=== PATIENT | male | born 1955 | race Caucasian/White ===

== ENCOUNTER 2021-04-19 00:24 | Day surgery (SDC) | payer MEDICARE, SELFPAY ==
[2021-04-08 15:25] VITALS: BMI 33.0
[2021-04-19 08:42] VITALS: BP 147/79; PULSE 89; RESP 20; TEMP 36.8; O2SAT 98
[2021-04-19] MEDS: LACTATED RINGERS 1,000 ML 150 ML IV CONT (08:44)
--- NOTE | 2021-04-19 08:52 | WPDANESEPPF ---
Anes - Initial Pre Proc Eval Procedure: Operation Date: 04/19/21 09:30 Proposed Procedures p Colonoscopy - Jamie Giron MD Date/Time: 04/19/21 08:52 Surgeon: Jamie Giron MD Pre Op Diagnosis: positive cologuard Patient Data Age: 65 Gender: M Height: 1.85 m Weight: 113.2 kg Last Vital Signs Temp 36.8 C 04/19/21 08:42 Pulse 89 04/19/21 08:42 Resp 20 04/19/21 08:42 BP 147/79 H 04/19/21 08:42 Pulse Ox 98 04/19/21 08:42 Allergies Allergy/AdvReac Type Severity Reaction Status Date / Time No Known Allergies Allergy Unverified 04/19/21 08:41 Home Medications Medication Instructions Recorded Confirmed Type atorvastatin 20 mg tablet 20 mg PO DAILY #90 tablet 03/31/21 04/19/21 Rx colchicine [Mitigare] 0.6 mg PO DAILY 04/08/21 04/19/21 History lisinopril 5 mg PO DAILY 04/08/21 04/19/21 History Patient hx anesthesia problems: none Family hx anesthesia problems: none Results Review: All pre-operative results and documents have been reviewed as part of the pre-operative evaluation. [facility] Past Medical History Medical History Essential (primary) hypertension Idiopathic chronic gout, unspecified site, without tophus (tophi) Mixed hyperlipidemia Nonalcoholic steatohepatitis (DRIVER) Prediabetes (2019) Surgical History Surgical History (Updated 04/19/21 @ 08:52 by Pablo Linder MD) H/O parotidectomy Family History Family History Father Family history of premature coronary heart disease, Onset Age: 56 Patient's father is Mother Hypertension Family history of elevated blood lipids Family history of diabetes mellitus in first degree relative Social History Social History Social History: Smoking status: Never smoker Second hand tobacco smoke exposure: No Alcohol intake: former Alcohol use details: hasn't been a drinker for 40 years Substance use: never Substance use type: does not use Living arrangements: with family Gender identity (if verbalized by the patient): Male Sexual Orientation (if Verbalized by the Patient): Straight or Heterosexual Spiritual care concerns: No Anes - Eval Final PreProcedure Day of Procedure 04/19/21 08:52 Patient weight: obese Heart: regular rate and rhythm Lungs: clear to auscultation Airway: Mallampati scale class II Neurological: alert and oriented Last oral intake: >/= 8 hours ASA classification: III Emergent: no Anesthetic plan: proceed Anesthesia type and monitoring: general GIVS and standard monitoring Results Review: All pre-operative results and documents have been reviewed as part of the pre-operative evaluation. Informed Consent: The patient's anesthetic plan and its attendant risks and benefits were discussed with the patient/family/POA. Questions were solicited and answers provided to the satisfaction of the patient/family/POA.
--- NOTE | 2021-04-19 09:20 | PM.HPGS ---
History of Present Illness History of Present Illness Consent: Risks, benefits, and alternatives have been discussed and questions answered. Patient agrees to proceed with procedure. Chief complaint: positive cologuard Narrative: Salo Shelley is a 65 year old male here for positive cologuard, never had colonoscopy Review of Systems Constitutional: Constitutional: Denies headache(s) and Denies weakness Eyes: Eyes: Denies blurry vision ENT: Reports Normal hearing present, Denies headache(s) and Denies neck pain Cardiovascular: Cardiovascular: Denies chest pain and Denies dyspnea Respiratory: Respiratory: Denies dyspnea Gastrointestinal: Gastrointestinal: Reports no additional gastrointestinal complaints Genitourinary: Genitourinary: Denies dysuria Musculoskeletal: Musculoskeletal: Denies neck pain Integumentary/Breasts: Skin/Breast: Denies dry skin Neurologic: Reports Normal hearing present, Denies headache(s) and Denies weakness Psychiatric: Psychiatric: Denies anxiety Endocrine: Endocrine: Denies change in body appearance Hematologic/Lymphatic: Hematologic/Lymphatic: Denies easy bleeding Allergic/Immunologic: Allergic/Immunologic: Denies urticaria PMFSH Past Medical History Medical History Essential (primary) hypertension Idiopathic chronic gout, unspecified site, without tophus (tophi) Mixed hyperlipidemia Nonalcoholic steatohepatitis (DRIVER) Prediabetes (2019) Surgical History Surgical History (Updated 04/19/21 @ 08:52 by Pablo Linder MD) H/O parotidectomy Family History Family History Father Family history of premature coronary heart disease, Onset Age: 56 Patient's father is Mother Hypertension Family history of elevated blood lipids Family history of diabetes mellitus in first degree relative Social History Social History Social History: Smoking status: Never smoker Second hand tobacco smoke exposure: No Alcohol intake: former Alcohol use details: hasn't been a drinker for 40 years Substance use: never Substance use type: does not use Living arrangements: with family Gender identity (if verbalized by the patient): Male Sexual Orientation (if Verbalized by the Patient): Straight or Heterosexual Spiritual care concerns: No Meds Home Medications and Allergies Home Medications Medication Instructions Recorded Confirmed Type atorvastatin 20 mg tablet 20 mg PO DAILY #90 tablet 03/31/21 04/19/21 Rx colchicine [Mitigare] 0.6 mg PO DAILY 04/08/21 04/19/21 History lisinopril 5 mg PO DAILY 04/08/21 04/19/21 History Allergies Allergy/AdvReac Type Severity Reaction Status Date / Time No Known Allergies Allergy Unverified 04/19/21 08:41 Vital Signs Vital Signs - 24 hr 04/19/21 08:42 Temperature 98.3 F Pulse Rate 89 Respiratory Rate 20 Blood Pressure 147/79 H Pulse Oximetry 98 Exam Const: General: comfortable and no acute distress HENMT: General nose exam: Normal nares present Eyes: General: appearance normal, both eyes and all related structures Neck: Neck: no JVD Resp: Auscultation: clear to auscultation bilaterally Cardio: Rate: regular rate Rhythm: regular rhythm GI: Inspection: non-distended GI Palp: Yes Soft to palpation Skin: General skin exam: normal color Neuro: General: gait normal Speech: normal speech Extrem: General: normal to inspection Psych: Mental Status: mental status grossly normal Assessment and Plan Assessment and plan (1) Positive colorectal cancer screening using Cologuard test: Code(s): R19.5 - Other fecal abnormalities Status: Acute Assessment and Plan: colonoscopy
[2021-04-19 09:44] VITALS: BP 107/68; PULSE 84; RESP 20; O2SAT 99
[2021-04-19 09:54] VITALS: BP 113/77; PULSE 74; RESP 18; O2SAT 98
[2021-04-19 10:04] VITALS: BP 123/74; PULSE 72; RESP 18; O2SAT 99
== END 2021-04-19 10:15 | disposition home or self-care (01) ==
PROVIDERS: PCP Family Medicine; Visit Provider Internal Medicine Gastroenterology
PROC: 0DJD8ZZ Inspection of Lower Intestinal Tract, Via Natural or Artificial Opening Endoscopic (ICD-10-PCS; CPT 45378; principal; 2021-04-19 09:30)
DX: R19.5 Other fecal abnormalities (principal); K64.8 Other hemorrhoids; D12.3 Benign neoplasm of transverse colon; I10 Essential (primary) hypertension; R73.03 Prediabetes; K75.81 Nonalcoholic steatohepatitis (NASH); E78.2 Mixed hyperlipidemia; M1A.00X0 Idiopathic chronic gout, unspecified site, without tophus (tophi); E66.9 Obesity, unspecified; Z68.32 Body mass index [BMI] 32.0-32.9, adult
CPT/HCPCS: 45385; 88305; J2704; J7120

== ENCOUNTER 2023-07-20 08:19 | Outpatient (CLI) | payer MEDICARE, SELFPAY ==
--- NOTE | ~2023-07-20 | CT_ITS ---
EXAMINATION: CT abdomen pelvis wo con DATE: 07/20/2023 09:35 INDICATION: Fever and left flank pain. Nephrolithiasis. TECHNIQUE: Computed tomography (CT) of the abdomen and pelvis was performed without intravenous contr ast. Automated exposure control and iterative reconstruction technique were employed. The dose-length product was 1544.79 mGy-cm. COMPARISON: None FINDINGS: Peripheral groundglass opacities and irregular septal line thickening at the bilateral mid to lower l ungs which is not evident on earlier chest radiograph dated 02/28/2018 which would favor pneumonia inc luding atypical viral pneumonia over chronic interstitial lung disease. No pleural effusion. Heart si ze is normal. Atherosclerotic coronary artery calcifications. Small pericardial effusion. Liver, gall bladder, spleen and bilateral adrenal glands are normal. A few tiny dystrophic pancreatic calcificati ons likely sequela of chronic pancreatitis. 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 Moderate to severe left renal atrophy. No urolithiasis or hydronephrosis. Brave els are normal. Bladder is unremarkable. No free intraperitoneal gas or fluid. No pathologically enla rged abdominal or pelvic lymphadenopathy. 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 IMPRESSION: 1. Peripheral lung disease in the bilateral lower lobes which appears relatively recent and favor pne umonia over chronic interstitial lung disease. 2. Moderate to severe left renal atrophy. No urolithiasis or hydronephrosis. 3. 1.2 cm rim calcified saccular aneurysm arising from the mid right renal artery. Reviewed, dictated and finalized at location A. IMPRESSION: 1. Peripheral lung disease in the bilateral lower lobes which appears relativel y recent and favor pneumonia over chronic interstitial lung disease. 2. Moderate to severe left renal atrophy. No urolithiasis or hydronephrosis. 3. 1.2 cm rim calcified saccular aneurysm arising from the mid right renal ahmet ry.
--- NOTE | ~2023-07-20 | XR_ITS ---
Clinical Indication: Cough, fever PA and lateral views of the chest: Comparison: 02/28/2018 Findings: The lungs are clear, without evidence of focal consolidation or pleural effusion. Cardiome diastinal silhouette is within normal limits. Bones and soft tissues are unremarkable. Impression: Normal chest. Reviewed, dictated and finalized at location . Impression: Normal chest.
[2023-07-20 09:11] LABS: Influenza A QL RT-PCR Positive (Negative); Influenza B QL RT-PCR Negative (Negative); SARS-CoV-2 RNA PCR Negative (Negative)
== END 2023-07-20 08:20 | disposition home or self-care (01) ==
PROVIDERS: PCP Family Medicine; Visit Provider Physician Assistant
DX: J02.9 Acute pharyngitis, unspecified (principal); R91.8 Other nonspecific abnormal finding of lung field; N26.1 Atrophy of kidney (terminal); I72.8 Aneurysm of other specified arteries; Z87.442 Personal history of urinary calculi
CPT/HCPCS: 71046; 74176; 87636

== ENCOUNTER 2023-11-23 10:37 | Outpatient (CLI) | payer MEDICARE, SELFPAY ==
--- NOTE | ~2023-11-23 | XR_ITS ---
XR wrist RT min 3V 11/23/2023 10:59 Indication: Right wrist pain. Procedure: 4 views right wrist Comparison: No prior studies for comparison. Findings: There are degenerative changes of the radiocarpal, ulnar carpal joints and to a lesser degr ee the intercarpal joints. No fracture or traumatic malalignment. No significant soft tissue abnormal ity. No foreign bodies. Impression: 1: Mild polyarticular osteoarthritis of the wrist. Reviewed, dictated and finalized at location B. Impression: 1: Mild polyarticular osteoarthritis of the wrist.
[2023-11-23 11:31] LABS: Basophils Absolute Auto 0.1 K/mm3 (0.0-0.1); Basophils Percent Auto 0.6 % (0.2-1.2); Eosinophils Absolute Auto 0.4 K/mm3 (0-0.3); Eosinophils Percent Auto 3.6 % (0-4.4); Hematocrit 43.6 % (42.0-52.0); Hemoglobin 14.7 g/dL (14.0-18.0); Immature Granulocyte Absolute 0.03 K/mm3 (0.00-0.031); Immature Granulocyte Percent A 0.3 % (0-0.5); Lymphocytes Absolute Auto 1.37 K/mm3 (0.9-3.2); Lymphocytes Percent Auto 12.3 % (18.3-44.2); Mean Corpuscular HGB Conc 33.7 g/dl (32-36); Mean Corpuscular Hemoglobin 30.1 pg (26-34); Mean Corpuscular Volume 89.2 fl (80-100); Mean Platelet Volume 11.8 fl (7.4-10.4); Monocytes Absolute Auto 1.2 K/mm3 (0.1-0.6); Monocytes Percent Auto 10.9 % (2.6-8.5); Neutrophils Absolute Auto 8.1 K/mm3 (1.3-6.7); Neutrophils Percent Auto 72.3 % (45.5-73.1); Platelet Count Result 198 k/mm3 (150-375); Red Blood Count 4.89 M/mm3 (4.6-6.20); Red Cell Distribution Width 13.3 % (11.5-14.5); White Blood Count 11.2 K/mm3 (4.5-10.0)
[2023-11-23 11:44] LABS: Alanine Aminotransferase 38 U/L (6-50); Albumin Level 4.6 g/dL (3.5-5.1); Alkaline Phosphatase 86 U/L (38-126); Anion Gap 10 mmol/L (4-12); Aspartate Amino Transferase 34 U/L (17-59); Bilirubin,Total 1.1 mg/dL (0.2-1.3); Blood Urea Nitrogen 25 mg/dL (9-20); CRP 1.5 mg/dL (<1.0); Calcium 9.7 mg/dL (8.4-10.2); Carbon Dioxide 24 mmol/L (22-30); Chloride 106 mmol/L (98-107); Estimated Glomerular Filt Rate 60; Glucose 163 mg/dL (65-110); Potassium 4.5 mmol/L (3.4-5.0); Sodium 140 mmol/L (137-145); Uric Acid 6.5 mg/dL (3.5-8.5)
[2023-11-23 12:32] LABS: Erythrocyte Sedimentation Rate 16 mm/hr (0-20)
[2023-11-24 12:13] LABS: ANA Cascade Screen NEGATIVE (NEGATIVE)
== END 2023-11-23 10:38 | disposition home or self-care (01) ==
LOC: ANHIMG 10:42
PROVIDERS: PCP Family Medicine; Visit Provider Family Medicine
DX: M25.431 Effusion, right wrist (principal); I10 Essential (primary) hypertension; E79.0 Hyperuricemia without signs of inflammatory arthritis and tophaceous disease; M19.031 Primary osteoarthritis, right wrist
CPT/HCPCS: 36415; 73110; 80053; 84550; 85025; 85652; 86038; 86140; 86225; 86235; 86364

== ENCOUNTER 2024-01-01 11:46 | Outpatient (NON) | payer MEDICARE, SELFPAY ==
[2024-01-01 12:34] LABS: Color Synovial Fluid Yellow (Colorless); Source Synovial Fluid Lt Knee Syn Fluid
[2024-01-01 12:35] LABS: Appearance Synovial Fluid Cloudy (Clear)
[2024-01-01 12:36] LABS: Lymphocytes Synovial Fluid 15 %; Monocytes Synovial Fluid 11 %; Neutrophils Synovial Fluid 74 % (0-25); Nucleated Cell Synovial Fluid 25200 /uL (0-200)
[2024-01-01 12:38] LABS: RBC Synovial Fluid 15000 /uL (0-0)
[2024-01-01 14:43] LABS: Crystals Synovial Fluid Many Msu (None Seen)
== END 2024-01-01 11:47 | disposition home or self-care (01) ==
LOC: ANHLAB 11:47
PROVIDERS: PCP Family Medicine; Visit Provider Physician Assistant Surgical
DX: M25.462 Effusion, left knee (principal); M25.562 Pain in left knee
CPT/HCPCS: 87070; 87075; 87205; 89051; 89060

== ENCOUNTER 2024-01-02 07:42 | Outpatient (CLI) | payer MEDICARE, SELFPAY ==
[2024-01-02 08:33] LABS: CRP 2.4 mg/dL (<1.0); Uric Acid 6.8 mg/dL (3.5-8.5)
[2024-01-02 08:40] LABS: Erythrocyte Sedimentation Rate 29 mm/hr (0-20)
[2024-01-08 13:29] LABS: Anti Cyclic Citrullinated Pept >250 UNITS
== END 2024-01-02 07:43 | disposition home or self-care (01) ==
PROVIDERS: PCP Family Medicine; Visit Provider Physician Assistant Surgical
DX: M25.462 Effusion, left knee (principal)
CPT/HCPCS: 36415; 84550; 85652; 86140; 86200

== ENCOUNTER 2024-01-10 07:28 | Outpatient (CLI) | payer MEDICARE, SELFPAY ==
[2024-01-10 08:50] LABS: Rheumatoid Factor 20.5 IU/ML (<12)
== END 2024-01-10 07:29 | disposition home or self-care (01) ==
PROVIDERS: PCP Family Medicine; Visit Provider Physician Assistant Surgical
DX: M25.462 Effusion, left knee (principal)
CPT/HCPCS: 36415; 86430

== ENCOUNTER 2024-02-21 10:59 | Outpatient (CLI) | payer MEDICARE, SELFPAY ==
[2024-02-21 11:47] LABS: Alanine Aminotransferase 28 U/L (6-50); Albumin Level 4.3 g/dL (3.5-5.1); Alkaline Phosphatase 91 U/L (38-126); Anion Gap 11 mmol/L (4-12); Aspartate Amino Transferase 24 U/L (17-59); Blood Urea Nitrogen 23 mg/dL (9-20); Calcium 9.4 mg/dL (8.4-10.2); Carbon Dioxide 25 mmol/L (22-30); Chloride 104 mmol/L (98-107); Estimated Glomerular Filt Rate > 60; Glucose 174 mg/dL (65-110); Potassium 4.3 mmol/L (3.4-5.0); Sodium 140 mmol/L (137-145)
[2024-02-21 13:43] LABS: Hemoglobin A1C 7.8 % (<5.7)
== END 2024-02-21 11:00 | disposition home or self-care (01) ==
LOC: ANHLAB 11:00
PROVIDERS: PCP Family Medicine; Visit Provider Family Medicine
DX: E11.9 Type 2 diabetes mellitus without complications (principal); M06.9 Rheumatoid arthritis, unspecified; M1A.09X1 Idiopathic chronic gout, multiple sites, with tophus (tophi)
CPT/HCPCS: 36415; 80053; 83036

== ENCOUNTER 2024-03-06 08:03 | Outpatient (CLI) | payer MEDICARE, SELFPAY ==
--- NOTE | ~2024-03-06 | MR_ITS ---
EXAMINATION: MR knee LT wo con DATE: 03/06/2024 08:49 INDICATION: Left knee joint effusion TECHNIQUE: Magnetic resonance imaging (MRI) of the left knee was performed without intravenous contra st. Sequences included coronal PD-weighted FSE, coronal PD-weighted FS FSE, sagittal T2-weighted FSE , sagittal PD-weighted FS FSE and axial PD weighted fat saturated FSE. COMPARISON: None. FINDINGS: Medial compartment: Complex medial meniscal tear beginning at the posterior horn is a longitudinal horizontal tear extend ing to the free edge at the lateral posterior horn and progressively transitioning to a more vertical configuration contacting the inferior articular surface at the periphery of the medial side of the p osterior horn and along the body of the meniscus. There is partial thickness chondral fissuring along the lateral aspect of the anterior to central weightbearing medial femoral condyle. There is mild pa rtial-thickness chondral ulceration at the anterior aspect of the medial tibial plateau. Lateral compartment: Lateral meniscus is normal. There is heterogeneous cartilage signal at the central aspect of the late ral tibial plateau with underlying tiny linear contour irregularity along the lateral tibial plateau which could represent either chondral fissuring with small central subchondral osteophyte or sequela of old healed lateral tibial plateau fracture. Normal cartilage along the weightbearing lateral femor al condyle. Patellofemoral compartment: Deep chondral ulceration and fissuring with mild underlying cortical irregularity and mild scattered subarticular edema-like signal change extending across the central portion of the medial and lateral patellar facets and intervening apical ridge. There is additional partial thickness trochlear chondra l ulceration without degenerative subchondral changes centered at the inferior aspect of the trochlea r groove. Ligaments and tendons: Anterior and posterior cruciate ligaments are normal. There is thickening and mild increased signal o f the proximal aspect of both the medial and fibular collateral ligaments consistent with mild scarri ng related to chronic sprain. Prominent thickening and marked increased signal at the distal popliteu s tendon consistent with severe tendinopathy and possible partial tear. There is a prominent erosion at its lateral condylar insertion. Mild quadriceps and patellar tendinopathy without tear. The visual ized medial and lateral hamstring tendons as well as the iliotibial band are normal. Fluid: Moderate joint effusion with prominent synovitis at the suprapatellar pouch. Additional synovitis shelly ng the posterior margin of Hoffa's fat pad. No loose osteochondral bodies identified. Tiny Salomon's cy st. Osseous/other: Normal marrow signal. No fracture or pathologic marrow replacing process. IMPRESSION: 1. Complex tear of the body and posterior horn of the medial meniscus. 2. Mild osteoarthritis with moderate grade chondromalacia in the medial compartment and with moderate to high-grade chondral malacia in the patellofemoral compartment. 3. Subtle cortical regularity at the central aspect of the lateral tibial plateau which could represe nt a small central subchondral osteophytes related to overlying chondral fissure versus sequela of an old healed tibial plateau fracture. Correlate with clinical history. 4. Severe tendinopathy and partial tear of the popliteus tendon with prominent erosion at its lateral femoral condylar insertion. 5. Moderate-sized left knee joint effusion with prominent synovitis. 6. Suggestion of mild scarring related to chronic sprains of the proximal medial and fibular collater al ligaments. 7. Mild patellar and distal quadriceps tendinopathy without tear. Reviewed, dictated and finalized at location B. BASE REPORTING CONSULTANT IMPRESSION: 1. Complex tear of the body and posterior horn of the medial meniscus. 2. Mild osteoarthritis with moderate grade chondromalacia in the medial compart ment and with moderate to high-grade chondral malacia in the patellofemoral com partment. 3. Subtle cortical regularity at the central aspect of the lateral tibial plate au which could represent a small central subchondral osteophytes related to ove rlying chondral fissure versus sequela of an old healed tibial plateau fracture . Correlate with clinical history. 4. Severe tendinopathy and partial tear of the popliteus tendon with prominent erosion at its lateral femoral condylar insertion. 5. Moderate-sized left knee joint effusion with prominent synovitis. 6. Suggestion of mild scarring related to chronic sprains of the proximal media l and fibular collateral ligaments. 7. Mild patellar and distal quadriceps tendinopathy without tear.
== END 2024-03-06 08:04 | disposition home or self-care (01) ==
LOC: GOSHIMG 08:04
PROVIDERS: PCP Orthopaedic Surgery; Visit Provider Physician Assistant Surgical
DX: S83.232A Complex tear of medial meniscus, current injury, left knee, initial encounter (principal); S86.812A Strain of other muscle(s) and tendon(s) at lower leg level, left leg, initial encounter; M25.462 Effusion, left knee; M17.12 Unilateral primary osteoarthritis, left knee; M94.262 Chondromalacia, left knee; X58.XXXA Exposure to other specified factors, initial encounter
CPT/HCPCS: 73721

== ENCOUNTER 2024-04-29 07:33 | Outpatient (CLI) | payer MEDICARE, SELFPAY ==
--- NOTE | ~2024-04-29 | XR_ITS ---
XR hand RT min 3V Ordering provider: Kristen Lezama MD History: . arthritis . Comparison: None. FINDINGS: BONES: No acute fracture or dislocation. Bony protrusions are seen in the distal phalanges of the third and fourth fingers most likely due to old trauma. JOINT SPACES: Slight narrowing of the distal interphalangeal joints with subarticular cystic changes and osteophyte formation suggestive osteoarthritic changes. Narrowing of the radiocarpal joint. SOFT TISSUES: Normal. IMPRESSION: No acute osseous abnormality right hand. Polyarticular osteoarthritic changes. Reviewed, dictated and finalized at location A.
--- NOTE | ~2024-04-29 | XR_ITS ---
XR wrist RT 2V Ordering provider: Kristen Lezama MD History: . PT STATES HE HAS ARTHIRITIS . Comparison: None. FINDINGS: BONES: No acute fracture or dislocation. No definite scaphoid fracture. JOINT SPACES: Narrowing of the radiocarpal joint. SOFT TISSUES: Normal. IMPRESSION: No acute osseous abnormality right wrist. Narrowing of the radiocarpal joint suggestive of osteoarthritic changes. Reviewed, dictated and finalized at location A.
--- OUTSIDE RECORDS SUMMARY | 2024-04-29 07:37 | XMS_ITS | Data Portability ---
Author Organization [place] - [place] [employer], Main Office Address [address] [place] [address] Care Team Providers Care Voice Intercept Technician Name Role Phone MEIR HARRIS Primary Care Provider MEIR HARRIS Referring Provider Assessment Encounter Date Assessment Date Assessment LastModified by Organization Details LastModified Time 05/12/2022 05/12/2022 HPI: 66-year-old male came in today for evaluation of is a right olecranon bursal effusion. He states that the swelling has been there for couple months. He recalls no injury or trauma. It does not hurt or cause any symptoms. He is just notices the swelling is there. 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 He has had no prior problems with the elbow. Physical exam: 66-year-old male alert pleasant. He has a mild olecranon bursal effusion. There is no redness warmth or tenderness of the effusion. He has no pain with range of motion of the elbow. Range of motion the elbow is from 15-130 degrees. Full pronation supination without discomfort. Impression: 66-year-old male who has a mild right olecranon bursal effusion. I discussed treatment options with him. He states that it has gotten smaller last several weeks. I discussed with him that he needs to avoid putting pressure on this area. He should not rest his elbow on hard surfaces or that his elbow rest on the center console his driving. He can use an Kaveh wrap for some light compression see if this will help get rid of the effusion as well. If he gets bigger than certainly this could be aspirated with cortisone injection to try to get it to go away and we discussed this and he will keep that in mind this point. I also discussed with him the signs and symptoms of infection and this would occur he needs go to the emergency room immediately and he understands as well. At this point we will see him back as needed. 20 minutes was spent in treatment patient morning of this mynj-ok-gnwx conversation [email or web address] Not available 05/12/2022 09:56:59 Plan of Treatment Reminders Order Date Submit Date Provider Last Modified By Organization Details Last Modified Time Details Appointments None recorde d. Lab None recorde d. Referral None recorde d. Procedures None recorde d. Surgeries None recorde d. Imaging XR, elbow 023 05/13/19 23 [email or web address] [facility] [place], [facility], [place], [address], 09:54:27 Medication Orders None recorde d. Patient TargetsNo targets recorded. Patient InstructionsNo instructions recorded. Reason for Referral None Reported. Results Created Date Observation Date Name Description Value Unit Range Abnormal Flag Note LastModifiedBy Organization Detail LastModifiedTime 04/25/19 21 XR, shoul geni No observ ation record ed. [id number] [facility] [place] [address], [place], [address], 04/06/2022 02:32:41 04/28/19 21 MRI, shoul geni, w/o contr ast [facility] [place] [address] [place] [address] Patien t Name: SALO SHELLEY [facility] ion #: [id number] Sex: M : 1955 1 Locati on: RA2 Attend ing Physic ivana: MOISÉS CLAIRE Orderi Physic ivana: MOISÉS CLAIRE Exam Date: 021 8:42 AM Exam Name: MRI SHOULD ER RT WO Admitt ing Diagno sis(es ): RADIOL OGY REPORT - FINAL EXAM: MRI SHOULD ER RT WO HISTOR Y: pain in right should er 64-yea r-old male with right should er pain, weakne ss, and limite d range of motion after dragan g/exte nsion injury about 4-5 weeks ago. COMPAR JAMES: Radiog raphs dated 2020. TECHNI QUE: Multip lanar multis equenc e noncon trast MR images of the right should er were perfor med. FINDIN GS: There may be a Hill-S achs impact ion fractu re of latera l aspect of the juvenal l head (image 13, series 701), versus appear ance due to chroni c rotato r cuff tendin opathy and insert ional erosio ns. 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 There is a comple te tear of the supras pinatu s tendon with tendon retrac tion and muscle belly atroph y. There is a comple te versus near comple te tear of the infras pinatu s tendon with tendon retrac tion and edema extend ing proxim ally along the muscul otendi nous juncti on into the muscle belly. 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 There is edema of the teres minor muscle . There is a split tear of the subsca pulari s tendon with probab le disrup tion of the transv erse juvenal l ligame nt. The long head of the biceps tendon is partia lly torn and disloc ated medial ly from the bicipi starla groove . The labrum is torn sidney superi irais. There is acromi oclavi cular hypert rophy. There is a bone spur extend ing anteri irais from the unders urface of the acromi on (image 10, series 701; image 16, series 1001). The unders urface of the acromi on is mildly curved . Subacr omial space is efface d, and the juvenal l head abuts the unders urface of the acromi on. Large glenoh umeral effusi on commun icates with fluid in the subacr omial- subdel toid region . IMPRES MIRIAM: 1. Hill-S achs impact ion fractu re of the juvenal l head supero latera lly versus appear ance due to chroni c rotato r cuff tendin opathy and associ ated insert ional erosio ns. 2. Extens fredy rotato r cuff tendin opathy includ ing comple te tear of the supras pinatu s tendon ; comple te versus near comple te tear of the infras pinatu s tendon ; split tear of the midpor tion of the subsca pulari s tendon ; edema of the teres minor muscle and tendon . 3. Partia l tear of the long head of the biceps tendon with disrup tion of the transv erse juvenal l ligame nt and medial disloc ation of the LHBT. 4. Tear of the anteri or superi or labrum . 5. Acromi oclavi cular hypert rophy, type 2 acromi on, and high-r iding juvenal l Page 2 of 3 [facility] t Name: ASLO SHELLEY Access ion #: [id number] Sex: M : 1955 1 Exam Date: 8:42 AM Exam Name: MRI SHOULD ER RT WO Admitt ing Diagno sis(es ): head which abuts the unders urface of the acromi on. Additi onally , there is a bone spur extend ing anteri irais from the unders urface of the acromi on. 6. Large glenoh umeral effusi on commun icates with fluid in the subacr omial subdel toid region . Create d and electr onical ly signed by: Jaime massey MD Signed Date: 5:16 PM (CT) Dictat ed by: Jaime massey MD DD: 5:16 PM (CT) DT: 5:16 PM (CT) Page 3 of 3 [id number] [facility] (Imaging) [address] [place], [address], 04/06/2022 02:32:41 10/23/19 21 XR, knee No observ ation record ed. [id number] [facility] [place] [address] [facility], [place], [address], 04/06/2022 02:32:41 05/13/19 23 XR, elbow No observ ation record ed. [email or web address] [facility] [place] [address] [facility], [place], [address], 05/12/2022 09:54:27 Result Notes None recorded. Problems Name Problem SNOMED Code Status Onset Date Resolution Date Notes Provider Name and Address Organization Details Recorded Time Gouty arthropath y 155084715 Active Not Available [facility] 3 02:28:59 Knee joint effusion 337460772 Active Not Available [facility] 3 02:28:59 Pain of right elbow joint 0944964873514 9109 Active 2022 ANGIE Rivera, [place] - [facility] [employer] [facility] 3 09:35:58 Problem Notes None recorded. Procedures Surgical History Date Name Laterality Status Provider Name and Address Organization Details Recorded Time procedure on neck completed Not Available [facility] 04/06/2022 02:26:28 Imaging Results Imaging Date Name Status LastModified by Organiz atformerly [facility] Details LastModified Time 04/24/2020 XR, shoulder completed [id number] [facility] [place] [address], [place], [address], 04/06/2022 02:32:41 04/27/2020 MRI, shoulder, w/o contrast completed [id number] [facility] (Imaging) [address] [place], [address], 04/06/2022 02:32:41 10/22/2020 XR, knee completed [id number] Z_hrc_g [facility] [address], [place], [address], 04/06/2022 02:32:41 05/12/2022 XR, elbow completed [email or web address] s_gmg [facility] [address] [facility], [place], [address], 05/12/2022 09:54:27 Procedure Notes None recorded. Medical Equipment None Reported. Allergies No known drug allergies Medications Name Sig Start Date Stop Date Status Note LastModified by Organization Details LastModified Time metformin 500 mg tablet TAKE 1 TABLET TWICE DAILY WITH MORNING AND EVENING MEALS 12/05 completed Not Available Not Available Not Available prednisone 10 mg tablet active Not Available Not Available Not Available atorvastati n 20 mg tablet TAKE 1 TABLET BY MOUTH EVERY DAY active Not Available Not Available No t Available ofloxacin 0.3 % eye drops 05/12 completed Not Available Not Available Not Available ketorolac 0.5 % eye drops 05/12 completed Not Available Not Available Not Available prednisolon e acetate 1 % eye drops,suspe nsion 05/12 completed Not Available Not Available Not Available Kenalog 10 mg/mL suspension for injection In office injection administe red by the provider 05/12 completed NDC: 0003- 0494- 20 Not Available Not Available Not Available indomethaci n 50 mg capsule TAKE 1 CAPSULE THREE TIMES A DAY 12/05 completed Not Available Not Available Not Available lisinopril 30 mg tablet TAKE ONE TABLET DAILY 12/05 completed Not Available Not Available Not Available diclofenac sodium 75 mg tablet,rin yed release TAKE 1 TABLET BY MOUTH TWICE A DAY active Not Available Not Available No t Available lisinopril 5 mg tablet active Not Available Not Available Not Available colchicine 0.6 mg tablet 05/12 completed Not Available Not Available Not Available lisinopril 2.5 mg tablet TAKE ONE TABLET DAILY IN THE MORNING 05/12 completed Not Available Not Available Not Available lidocaine (PF) 10 mg/mL (1 %) injection solution In office injection administe red by the provider 05/12 completed NDC: 0409- 4276- 17 Not Available Not Available Not Available colchicine 0.6 mg capsule TAKE ONE CAPSULE BY MOUTH ONCE DAILY NEEDED FOR GOUT FLARE active Not Available Not Available No t Available Vitals Date Recorded Body mass index (BMI) Body height Body weight Provider Name and Address Organization Details Last Updated DateTime 04/24/2020 34.2 kg/m2 182.88 cm 954289.28 g Not Available [facility] 04/06/2022 02:27:54 Date Recorded Body height Pain severity - 0-10 verbal numeric rating [Score] - Reported Provider Name and Address Organization Details Last Updated DateTime 05/01/2020 182.88 cm 5 Not Available [facility] 02:27:54 Date Recorded Body height Provider Name an d Address Organization Details Last Updated DateTime 10/22/2020 182.88 cm Not Available [facility] 02:27:54 Date Recorded Body height Body mass index (BMI) Body weight Provider Name and Address Organization Details Last Updated DateTime 05/12/2022 180.34 cm 36 kg/m2 199639.83 g ANGIE Rivera [place] - [facility] [employer] 05/12/2022 09:37:38 Social History Question Answer Notes LastModified by Organizat ion Details LastModified Time Tobacco Smoking Status Never Smoker Not Available [facility] 04/06/2022 02:25:04 What Was The Date Of Your Most Recent Tobacco Screening? 05/01/2020 [id number] Information not available 04/06/2022 Sex: Unknown Functional Status None recorded. Mental Status None recorded. Family History Relationship Description Onset Age of this Age Resolved Age Notes LastModified by Organization Details LastModified Time Unspecified Relation Diabetes mellitus [id number] Not available 04/06/2022 02:26:30 Father Heart disease [email or web address] Not available 2022 09:35:25 Sister Heart disease [email or web address] Not available 2022 09:35:25 Medical History Condition Response ARTHRITIS Y GOUT Y Past Encounters Encounter ID Performer Location Encounter Start Date Encounter Closed Date Diagnosis/Indication Diagnosis SNOMED-CT Code Diagnosis ICD10 Code Diagnosis Note [id number] [facility] [place] [address] [place] [address] 04/24/2020 00:00:00 04/25/2020 21:40:33 [id number] [facility] [place] [address] [address] [address] [place] [address] 05/01/2020 00:00:00 05/02/2020 19:55:17 [id number] [facility] [address] [address] 10/22/2020 00:00:00 10/22/2020 11:27:21 [id number] SHAI Chavez [facility] [address] [address] 05/12/2022 09:19:36 05/12/2022 09:53:20 Pain of right elbow joint 6480936570 4695081 M25.521 Health Concerns Section Related Observation LastModified by Organization Detai ls LastModified Time None Recorded Concern Status LastModified by Organization Details LastModified Time None Recorded Advance Directives Directive None Recorded Payers Encounter Date Sequence Insurance Name Policy Number Policy Marcano Covered Member ID Marcano Member ID Guarantor Name 05/12/2022 1 [facility] (MEDICARE REPLACEMENT/A DVANTAGE - HMO) [id number] Salo Shelley [id number] Salo Shelley
--- OUTSIDE RECORDS SUMMARY | 2024-04-29 07:37 | XMS_ITS | Continuity of Care Document ---
Author Organization [facility] Address [address] [place] [address] [address] [place] [address] Phone Care Team Providers Care Cash Management Coordinator Name Role Phone Kirkland OD, Donaldo Unavailable Unavailable Procedures Procedure Date Eye Exam & Treatment Refraction Advance Directives Directive Yes / No Effective Date File Name No Information Encounters Encounter Description Practice Location Reason(s) For Visit Diagnoses Date Provider Providers Copied on Encounter [facility], [address], [place], [place], [id number], [place] tel:[phone] SEC [facility] [place] No Information 3-201 0 Kirkland OD Donaldo. [address] , [address], [place], [address], [place]. tel:[phone] Family History Family Member Type Diagnosis Age [...]
[2024-04-29 08:06] LABS: Hematocrit 45.3 % (42.0-52.0); Hemoglobin 15.2 g/dL (14.0-18.0); Mean Corpuscular HGB Conc 33.6 g/dl (32-36); Mean Corpuscular Hemoglobin 29.6 pg (26-34); Mean Corpuscular Volume 88.1 fl (80-100); Mean Platelet Volume 10.8 fl (7.4-10.4); Platelet Count Result 204 k/mm3 (150-375); Red Blood Count 5.14 M/mm3 (4.6-6.20); White Blood Count 11.4 K/mm3 (4.5-10.0)
[2024-04-29 08:39] LABS: Alanine Aminotransferase 35 U/L (6-50); Albumin Level 4.7 g/dL (3.5-5.1); Alkaline Phosphatase 84 U/L (38-126); Anion Gap 11 mmol/L (4-12); Aspartate Amino Transferase 25 U/L (17-59); Bilirubin,Total 1.2 mg/dL (0.2-1.3); Blood Urea Nitrogen 26 mg/dL (9-20); Calcium 9.7 mg/dL (8.4-10.2); Carbon Dioxide 26 mmol/L (22-30); Chloride 102 mmol/L (98-107); Estimated Glomerular Filt Rate 58; Glucose 157 mg/dL (65-110); Potassium 4.1 mmol/L (3.4-5.0); Sodium 139 mmol/L (137-145); Uric Acid 4.8 mg/dL (3.5-8.5)
[2024-04-29 09:23] LABS: Vitamin D 25 Hydroxy 33.9 ng/mL
[2024-04-29 09:43] LABS: Folic Acid 4.8 ng/mL (2.76->20)
[2024-04-29 11:37] LABS: Hepatitis B Surface Antigen Negative (Negative)
[2024-04-29 11:43] LABS: HAV RESULT Negative (Negative); Hepatitis B Core IgM Result Negative (Negative)
[2024-04-29 11:45] LABS: HIV 1/2 Ab P24 Ag Result Negative (Negative)
[2024-04-29 11:54] LABS: Hepatitis C Virus Antibody Negative (Negative)
[2024-05-01 12:53] LABS: Hepatitis C RNA, Quant PCR <15 NOT DETECTED IU/mL (NOT DETECTED)
== END 2024-04-29 07:34 | disposition home or self-care (01) ==
PROVIDERS: PCP Family Medicine; Visit Provider Internal Medicine Rheumatology
DX: M19.90 Unspecified osteoarthritis, unspecified site (principal); E55.9 Vitamin D deficiency, unspecified; E53.8 Deficiency of other specified B group vitamins; Z51.81 Encounter for therapeutic drug level monitoring; Z79.899 Other long term (current) drug therapy; Z11.59 Encounter for screening for other viral diseases; M06.9 Rheumatoid arthritis, unspecified; M19.041 Primary osteoarthritis, right hand
CPT/HCPCS: 73100; 73130; 80074; 86480; 86703; 87522; G0432

== ENCOUNTER 2024-08-13 07:19 | Outpatient (RCR) | payer MEDICARE, SELFPAY ==
--- OUTSIDE RECORDS SUMMARY | 2024-06-14 07:18 | XMS_ITS | Continuity of Care Document ---
Author Organization [facility] Address [address] [place] [address] [address] [place] [address] Phone Care Team Providers Care City Mail Carrier Name Role Phone Kirkland OD, Donaldo Unavailable Unavailable Procedures Procedure Date Eye Exam & Treatment Refraction Advance Directives Directive Yes / No Effective Date File Name No Information Encounters Encounter Description Practice Location Reason(s) For Visit Diagnoses Date Provider Providers Copied on Encounter [facility], [address], [place], [place], [id number], [place] tel:[phone] SEC [facility] No Information 3-201 0 Kirkland OD Donaldo. [address] , [address], [place], [address], [place]. tel:[phone] Family History Family Member Type Diagnosis Age At Onset No Information Payers Payer name Insurance type Covered constitution party ID Authoriza tion(s) No Information Social [...]
--- OUTSIDE RECORDS SUMMARY | 2024-06-14 07:18 | XMS_ITS | Data Portability ---
Author Organization [place] [facility] [employer], Main Office Address [address] [place] [address] Care Team Providers Care Vp Ad Products And Planning Name Role Phone MEIR HARRIS Primary Care [...] spent in treatment patient morning of this ajld-dz-pvso conversation [email or web address] Not available 05/12/2022 09:56:59 Plan of Treatment Reminders Order Date Submit Date Provider Last Modified By Organization Details Last Modified Time Details Appointments None recorde d. Lab None recorde d. Referral None recorde d. Procedures None recorde d. Surgeries None recorde d. Imaging XR, elbow 023 05/13/19 23 [email or web address] s[facility] [place], [facility], [place], [address], 09:54:27 Medication Orders None recorde d. Patient TargetsNo targets recorded. Patient InstructionsNo instructions recorded. Reason for Referral None Reported. Results Created Date Observation Date Name Description Value Unit Range Abnormal Flag Note LastModifiedBy Organization Detail LastModifiedTime 04/25/19 21 XR, shoul geni No observ ation record ed. [id number] [facility] [place] [address], [place], [address], 04/06/2022 02:32:41 04/28/19 21 MRI, shoul geni, w/o contr ast [facility] [place] [address] [place] [address] Patien t Name: SALO SHELLEY [facility] ion #: [id number] Sex: M : 1955 1 Locati on: RA2 Attend ing Physic ivana: HONG CLAIRE Orderi Physic ivana: HONG CLAIRE Exam Date: 021 8:42 AM Exam [...] s of the Page 1 of 3 [facility] Name: SALO SHELLEY Access ion #: [id number] Sex: M : 1955 1 Exam Date: 021 8:42 AM Exam Name: MRI SHOULD ER RT WO Admitt ing Diagno sis(es ): 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 There is edema of the [...] iding juvenal l Page 2 of 3 [facility] t Name: SALO SHELLEY Access ion #: [id number] Sex: M : 1955 1 Exam [...] 5:16 PM (CT) Page 3 of 3 [id number] [facility] (Imaging) [address] [place], [address], 04/06/2022 02:32:41 10/23/19 21 XR, knee No observ ation record ed. [id number] [facility] [place] [address] [facility], [place], [address], 04/06/2022 02:32:41 05/13/19 23 XR, elbow No observ ation record ed. [email or web address] [facility] [place] [address] [facility], [place], [address], 05/12/2022 09:54:27 Result Notes None recorded. Problems Name Problem SNOMED Code Status Onset Date Resolution Date Notes Provider Name and Address Organization Details Recorded Time Gouty arthropath y 581941329 Active Not Available [facility] 3 02:28:59 Knee joint effusion 286922849 Active Not Available [facility] 3 02:28:59 Pain of right elbow joint 9106659601951 9109 Active 2022 ANGIE Rivera[place] - [facility] [employer] [facility] 3 09:35:58 Problem Notes None recorded. Procedures Surgical History Date Name Laterality Status Provider Name and Address Organization Details Recorded Time procedure on neck completed Not Available [facility] 04/06/2022 02:26:28 Imaging Results Imaging Date Name Status [facility]Modified by [facility] Details LastModified Time 04/24/2020 XR, shoulder completed [id number] [facility] [place] [address], [place], [address], 04/06/2022 02:32:41 04/27/2020 MRI, shoulder, w/o contrast completed [id number] [facility] (Imaging) [address] [place], [address], 04/06/2022 02:32:41 10/22/2020 XR, knee completed [id number] Z_hrc_g [facility] [address], [place], [address], 04/06/2022 02:32:41 05/12/2022 XR, elbow completed [email or web address] s_gmg [facility] [address] [facility], [place], [address], 05/12/2022 09:54:27 Procedure Notes None recorded. Medical [...] Updated DateTime 04/24/2020 34.2 kg/m2 182.88 cm 357737.28 g Not Available [facility] 04/06/2022 02:27:54 Date Recorded Body height Pain severity - 0-10 verbal numeric rating [Score] - Reported Provider Name and Address Organization Details Last Updated DateTime 05/01/2020 182.88 cm 5 Not Available [facility] 02:27:54 Date Recorded Body height Provider Name an d Address Organization Details Last Updated DateTime 10/22/2020 182.88 cm Not Available [facility] 02:27:54 Date Recorded Body height Body mass index (BMI) Body weight Provider Name and Address Organization Details Last Updated DateTime 05/12/2022 180.34 cm 36 kg/m2 172940.83 g ANGIE Rivera [place] - [facility] [employer] 05/12/2022 09:37:38 Social History Question Answer Notes LastModified by Organizat ion Details LastModified Time Tobacco Smoking Status Never Smoker Not Available [facility] 04/06/2022 02:25:04 What Was The Date Of Your Most Recent Tobacco Screening? 05/01/2020 [id number] Information not available 04/06/2022 Sex: Unknown Functional Status None recorded. Mental Status None recorded. Family History Relationship Description Onset Age of this Age Resolved Age Notes LastModified by Organization Details LastModified Time Unspecified Relation Diabetes mellitus [id number] Not available 04/06/2022 02:26:30 Father Heart disease [email or web address] Not available 2022 09:35:25 Sister Heart disease [email or web address] Not available 2022 09:35:25 Medical History Condition Response ARTHRITIS Y GOUT Y Past Encounters Encounter ID Performer Location Encounter Start Date Encounter Closed Date Diagnosis/Indication Diagnosis SNOMED-CT Code Diagnosis ICD10 Code Diagnosis Note [id number] Hong Wick MD [facility] [place] [address] [place] [address] 04/24/2020 00:00:00 04/25/2020 21:40:33 [id number] Hong Wick MD [facility] [place] [address] [facility] [address] [place] [address] 05/01/2020 00:00:00 05/02/2020 19:55:17 [id number] Hong Wick MD [facility]_[address] [address] 10/22/2020 00:00:00 10/22/2020 11:27:21 [id number] Hong Wick MD [facility]_[address] [address] 05/12/2022 09:19:36 05/12/2022 09:53:20 Pain of right elbow joint 7456814447 1302171 M25.521 Health Concerns Section Related Observation LastModified by Organization Detai ls LastModified Time None Recorded Concern Status LastModified by Organization Details LastModified Time None Recorded Advance Directives Directive None Recorded Payers Encounter Date Sequence Insurance Name Policy Number Policy Marcano Covered Member ID Marcano Member ID Guarantor Name 05/12/2022 1 [facility] (MEDICARE REPLACEMENT/A DVANTAGE - HMO) [id number] Salo Shelley [id number] Salo Shelley
[2024-06-14 07:49] LABS: Hematocrit 42.2 % (42.0-52.0); Hemoglobin 14.3 g/dL (14.0-18.0); Immature Granulocyte Percent A 0.3 % (0-0.5); Lymphocytes Absolute Auto 1.81 K/mm3 (0.9-3.2); Mean Corpuscular HGB Conc 33.9 g/dl (32-36); Mean Corpuscular Hemoglobin 30.2 pg (26-34); Mean Corpuscular Volume 89.2 fl (80-100); Nucleated Red Blood Cells Absolute Auto 0.000 K/mm3 (0.0-0.012); Nucleated Red Blood Cells Perc 0.0 % (0.0-0.2); Platelet Count Result 216 k/mm3 (150-375); Red Blood Count 4.73 M/mm3 (4.6-6.20); White Blood Count 7.8 K/mm3 (4.5-10.0)
[2024-06-14 07:59] LABS: Alanine Aminotransferase 36 U/L (6-50); Albumin Level 4.6 g/dL (3.5-5.1); Alkaline Phosphatase 69 U/L (38-126); Anion Gap 14 mmol/L (4-12); Aspartate Amino Transferase 31 U/L (17-59); Bilirubin,Total 1.2 mg/dL (0.2-1.3); Blood Urea Nitrogen 25 mg/dL (9-20); Calcium 9.5 mg/dL (8.4-10.2); Carbon Dioxide 25 mmol/L (22-30); Chloride 103 mmol/L (98-107); Estimated Glomerular Filt Rate 51; Glucose 150 mg/dL (65-110); Potassium 3.9 mmol/L (3.4-5.0); Sodium 142 mmol/L (137-145); Total Protein 8.0 g/dL (6.3-8.2)
[2024-07-12 07:56] LABS: Hematocrit 44.2 % (42.0-52.0); Hemoglobin 14.7 g/dL (14.0-18.0); Immature Granulocyte Percent A 0.4 % (0-0.5); Lymphocytes Absolute Auto 1.60 K/mm3 (0.9-3.2); Mean Corpuscular HGB Conc 33.3 g/dl (32-36); Mean Corpuscular Hemoglobin 30.1 pg (26-34); Mean Corpuscular Volume 90.6 fl (80-100); Nucleated Red Blood Cells Absolute Auto 0.000 K/mm3 (0.0-0.012); Nucleated Red Blood Cells Perc 0.0 % (0.0-0.2); Platelet Count Result 193 k/mm3 (150-375); Red Blood Count 4.88 M/mm3 (4.6-6.20); White Blood Count 8.6 K/mm3 (4.5-10.0)
[2024-07-12 07:57] LABS: Alanine Aminotransferase 32 U/L (6-50); Albumin Level 4.5 g/dL (3.5-5.1); Alkaline Phosphatase 87 U/L (38-126); Anion Gap 12 mmol/L (4-12); Aspartate Amino Transferase 30 U/L (17-59); Bilirubin,Total 1.2 mg/dL (0.2-1.3); Blood Urea Nitrogen 20 mg/dL (9-20); Calcium 9.8 mg/dL (8.4-10.2); Carbon Dioxide 22 mmol/L (22-30); Chloride 106 mmol/L (98-107); Estimated Glomerular Filt Rate 60; Glucose 146 mg/dL (65-110); Potassium 4.1 mmol/L (3.4-5.0); Sodium 140 mmol/L (137-145); Total Protein 8.0 g/dL (6.3-8.2)
[2024-08-13 08:13] LABS: Hematocrit 44.6 % (42.0-52.0); Hemoglobin 14.9 g/dL (14.0-18.0); Immature Granulocyte Percent A 0.5 % (0-0.5); Lymphocytes Absolute Auto 1.38 K/mm3 (0.9-3.2); Mean Corpuscular HGB Conc 33.4 g/dl (32-36); Mean Corpuscular Hemoglobin 30.2 pg (26-34); Mean Corpuscular Volume 90.5 fl (80-100); Nucleated Red Blood Cells Absolute Auto 0.000 K/mm3 (0.0-0.012); Nucleated Red Blood Cells Perc 0.0 % (0.0-0.2); Platelet Count Result 233 k/mm3 (150-375); Red Blood Count 4.93 M/mm3 (4.6-6.20); White Blood Count 9.8 K/mm3 (4.5-10.0)
[2024-08-13 08:32] LABS: Alanine Aminotransferase 40 U/L (6-50); Albumin Level 4.6 g/dL (3.5-5.1); Alkaline Phosphatase 74 U/L (38-126); Anion Gap 11 mmol/L (4-12); Aspartate Amino Transferase 33 U/L (17-59); Bilirubin,Total 1.0 mg/dL (0.2-1.3); Blood Urea Nitrogen 32 mg/dL (9-20); Calcium 10.0 mg/dL (8.4-10.2); Carbon Dioxide 24 mmol/L (22-30); Chloride 106 mmol/L (98-107); Estimated Glomerular Filt Rate 52; Glucose 154 mg/dL (65-110); Potassium 4.4 mmol/L (3.4-5.0); Sodium 141 mmol/L (137-145); Total Protein 8.5 g/dL (6.3-8.2)
== END 2024-09-12 23:59 | disposition home or self-care (01) ==
LOC: ANHLAB 07:19
PROVIDERS: PCP Family Medicine; Visit Provider Internal Medicine Rheumatology
DX: Z51.81 Encounter for therapeutic drug level monitoring (principal); Z79.899 Other long term (current) drug therapy
CPT/HCPCS: 36415; 80048; 80053; 80076; 82248; 85025

== ENCOUNTER 2024-10-09 07:05 | Outpatient (CLI) | payer MEDICARE, SELFPAY ==
[2024-10-09 08:04] LABS: Cholesterol 150 mg/dL (0-200); HDL Direct 31 mg/dL; Triglycerides 172 mg/dL (<150)
[2024-10-09 08:41] LABS: Prostate Specific Antigen 0.6 ng/mL (< OR = 4.0); Thyroid Stimulating Hormone 10.300 uIU/mL (0.465-4.680)
[2024-10-09 08:59] LABS: Add Urine Microscopic? NO; Appearance Urine Clear (Clear); Glucose Urine UA 3+ mg/dL (Negative); Leukocyte Esterase Ur Negative LEU/UL (Negative); Nitrate Urine Negative (Negative); Specific Grav Ur 1.019 (1.001-1.035)
[2024-10-09 09:10] LABS: MALB Creatinine Ratio 25.6 mg/g (0-30)
[2024-10-09 09:43] LABS: Hemoglobin A1C 6.5 % (<5.7)
== END 2024-10-09 07:06 | disposition home or self-care (01) ==
PROVIDERS: PCP Family Medicine; Visit Provider Physician Assistant
DX: E11.22 Type 2 diabetes mellitus with diabetic chronic kidney disease (principal); E78.2 Mixed hyperlipidemia; K75.81 Nonalcoholic steatohepatitis (NASH); Z12.5 Encounter for screening for malignant neoplasm of prostate; M05.9 Rheumatoid arthritis with rheumatoid factor, unspecified; Z00.00 Encounter for general adult medical examination without abnormal findings; R35.1 Nocturia; I12.9 Hypertensive chronic kidney disease with stage 1 through stage 4 chronic kidney disease, or unspecified chronic kidney disease; N18.1 Chronic kidney disease, stage 1
CPT/HCPCS: 36415; 80061; 81003; 82043; 83036; 84153; 84443

== ENCOUNTER 2024-10-23 07:19 | Outpatient (CLI) | payer MEDICARE, SELFPAY ==
--- OUTSIDE RECORDS SUMMARY | 2009-07-29 03:45 | XMS_ITS | Continuity of Care Document ---
Author Organization [facility] Address [address] [place] [address] [address] [address] Phone Care Team Providers Care Executive Sales Manager Name Role Phone Kirkland OD, Donaldo Unavailable Unavailable Procedures Procedure Date Eye Exam & Treatment Refraction Advance Directives Directive Yes / No Effective Date File Name No Information Encounters Encounter Description Practice Location Reason(s) For Visit Diagnoses Date Provider Providers Copied on Encounter [facility], [address], , [id number], [place] tel:[phone] [facility] No Information 3-201 0 Kirkland OD Donaldo. [address] [facility] [address] , [address], [place], [address], [place]. tel:[phone] Family History Family Member Type Diagnosis Age At Onset No Information Payers Payer name Insurance type Covered republican ID Authoriza tion(s) No Information Social History [...]
--- OUTSIDE RECORDS SUMMARY | 2024-10-22 10:00 | XMS_ITS | Encounter Summary ---
Author Organization [facility] Address [address] [place] [address] Care Team Providers Care Thermostat Machine Tender Name Role Phone Mauro Hernandez MD Primary Care Provider [phone] Reason for Visit * Reason Comments New Patient Abnormal labs Encounter Details Date Type Department Care Team (Late st Contact Info) Description 10/22/2024 10:00 AM CDT Office Visit [facility] - [address] [place] [address] Monica Hoskins MD [address] [place] [id number] New Patient (Abnormal labs) Social History Tobacco Use Types Packs/Day Years Used Date Smoking Tobacco: Never Tobacco Cessation:Counseling Given: No Alcohol Use Standard Drinks/Week Comments Not Currently 0 (1 standard drink = 0.6 oz pur e alcohol) not since 2017 PHQ-2 Answer Date Recorded Patient Health Questionnaire-2 Score 0 10/22/2024 Sex and Gender Information Value Date Recorded Sex Assigned at Male 10/22/2024 9:38 AM CDT Legal Sex Male 10:32 AM CDT Gender Identity Not on file Sexual Orientation Not on file documented as of this encounter Last Filed Vital Signs Vital Sign Reading Time Taken Comments Blood Pressure 133/84 10/22/2024 9:53 AM CDT Pulse 84 10/22/2024 9:53 AM CDT Temperature 36.6 C (97.9 F) 10/22/2024 9:53 AM CDT Respiratory Rate - - Oxygen Saturation 98% 10/22/2024 9:53 AM CDT Inhaled Oxygen Concentration - - Weight 108.9 kg (240 lb) 10/22/2024 9:53 AM CDT Height 183 cm (6' 0.05) 10/22/2024 9:53 AM CDT Body Mass Index 32.5 10/22/2024 9:53 AM CDT documented in this encounter Functional Status * Over the past 2 weeks, how often have you been bothered by any of the following problems? Question Answer Date of Assessment Author Status Little interest or pleasure in doing things Not at all 10/22/2024 9:48 AM CDT Alejandrina Owens LPN Active Feeling down, depressed, or hopeless Not at all 10/22/2024 9:48 AM CDT Alejandrina Owens LPN Activ e Patient Health Questionnaire-2 Score 0 10/22/2024 9:48 AM CDT Alejandrina Owens LPN Active documented as of this encounter Plan of Treatment Upcoming Encounters Date Type Department Care Team (Late st Contact Info) Description 06/24/2025 10:00 AM CDT Office Visit [facility] - [address] [address] Monica Hoskins MD [address] [place] [id number] Scheduled Orders Name Type Priority Associated Diagnoses Orde r Schedule BASIC METABOLIC PANEL Lab Routine CKD stage 3a, GFR 45-59 ml/min (CMS/HCC) Expected: 10/22/2024, Expires: 10/22/2025 ALBUMIN URINE RANDOM W/CREATININE Lab Routine CKD stage 3a, GFR 45-59 ml/min (CMS/HCC) Expected: 10/22/2024, Expires: 10/22/2025 CREATININE URINE RANDOM Lab Routine CKD stage 3a, GFR 45-59 ml/min (CMS/HCC) Expected: 10/22/2024, Expires: 10/22/2025 BASIC METABOLIC PANEL Lab Routine CKD stage 3a, GFR 45-59 ml/min (CMS/HCC) Expected: 06/15/2025, Expires: 10/22/2025 ALBUMIN URINE RANDOM W/CREATININE Lab Routine CKD stage 3a, GFR 45-59 ml/min (CMS/HCC) Expected: 06/15/2025, Expires: 10/22/2025 CREATININE URINE RANDOM Lab Routine CKD stage 3a, GFR 45-59 ml/min ([facility]) Expected: 06/15/2025, Expires: 10/22/2025 documented as of this encounter Visit Diagnoses Diagnosis CKD stage 3a, GFR 45-59 ml/min ([facility])- Primary Primary hypertension Unspecified essential hypertension Diabetic nephropathy associated with type 2 diabetes mellitus ([facility]) Type 2 diabetes mellitus with diabetic nephropathy, without long-term current use of insulin ([facility]) documented in this encounter Care Teams Thermostat Machine Tender Relationship Specialty Start Date End Date Mauro Hernandez MD [address] [place] [address] PCP - General FAMILY PRACTICE 10/22/24 documented as of this encounter
--- OUTSIDE RECORDS SUMMARY | 2024-10-23 07:24 | XMS_ITS | Clinical Summary ---
Author Organization [facility] Address [address] [place] [address] Care Team Providers Care Tractor Trailer Moving Van Driver Name Role Phone Mauro Hernandez MD Primary Care Provider [phone] Allergies No known active allergies Medications colchicine-probe necid 0.5-500 MG tablet Take 1 tablet by mouth 2 (two) times daily with meals. Active methotrexate (TREXALL) 2.5 MG tablet 1 tablet (2.5 mg total) once a week. Active vitamin D3 (CHOLECALCIFEROL ) 25 mcg tablet Take 1 tablet (25 mcg total) by mouth daily. Active Dapagliflozin Propanediol (FARXIGA) 5 MG Tab Active folic acid (FOLVITE) 1 MG tablet Take 1 tablet (1 mg total) by mouth daily. Active lisinopril (PRINIVIL) 5 MG tablet Take 1 tablet (5 mg total) by mouth daily. Active atorvastatin (LIPITOR) 20 MG tablet Take 1 tablet (20 mg total) by mouth nightly at bedtime. Active Encounters Date Type Department Care Team Description 10/22/2024 10:00 AM CDT Office Visit [facility] - [address] [place] [phone] Monica Hoskins MD New Patient (Abnormal labs) 10/22/2024 Travel from Last 3 Months Family History Medical History Relation Comments Heart Disease Father Diabetes Mother Heart Disease Mother Diabetes Sister Heart Disease Sister Relation Status Comments Father Mother Sister Social History Tobacco Use Types Packs/Day Years [...] on file Sexual Orientation Not on file Last Filed Vital Signs Vital Sign Reading [...] Mass Index 32.5 10/22/2024 9:53 AM CDT Plan of Treatment Upcoming Encounters Date Type Department Care Team (Late st Contact Info) Description 06/24/2025 10:00 AM CDT Office Visit [facility] - [address] [place] [address] Monica Hoskins MD [address] [place] [id number] Health Maintenance Due Date Last Done Comments Colorectal Cancer Screening Colonoscopy (10 Years) 1955 Kidney Health Evaluation 1955 Hemoglobin A1C 1955 Lipid Panel 1955 Diabetes: Retinopathy Eye Exam 06/03/1973 Hepatitis C 06/03/1973 DTaP, Tdap and Td Vaccines ( 1 - Tdap) 06/03/1974 Pneumococcal Vaccine: 50+ Years (1 of 2 - PCV) 06/03/1974 Zoster Vaccines (1 of 2) 06/03/2005 RSV Immunization or 60+ Years (1 - Risk 60-74 years 1-dose series) 2015 Annual Medicare Wellness Visit 06/03/2020 COVID-19 Vaccine (4 - 2024-2 6 season) 2024 12/22/2021, 04/28/2020, 04/07/2020 PHQ-2 (Physician [place]) Completed 10/22/2024 Meningococcal B Vaccine Aged Out No l onger eligible based on patient's age to complete this topic Meningococcal Vaccine Aged Out No yonas dereck eligible based on patient's age to complete this topic RSV Immunizations Under 20 Months Aged Out No longer eligible b ased on patient's age to complete this topic Insurance [facility] [place] [address] Care Teams Tractor Trailer Moving Van Driver Relationship Specialty Start Date End Date Mauro Hernandez MD [address] [place] [address] PCP - General FAMILY PRACTICE 10/22/24
--- OUTSIDE RECORDS SUMMARY | 2024-10-23 07:24 | XMS_ITS | Encounter Summary ---
Author Organization [facility] Address [address] [place] [address] Care Team Providers Care Shirt Folding Machine Operator Name Role Phone Mauro Hernandez MD Primary Care Provider [phone] Encounter Details Date Type Department Care Team (Latest Contact Info) Description 10/22/2024 Travel Social History Tobacco Use Types Packs/Day Years Used Date Smoking Tobacco: Never Alcohol Use Standard Drinks/Week Comments Not Currently [...] on file documented as of this encounter Functional Status * Over the [...] Description 06/24/2025 10:00 AM CDT Office Visit [facility] - [address] [place] [address] Monica Hoskins MD [address] [facility], [address] [address] documented as of this encounter Visit Diagnoses Not on filedocumented in this encounter Care Teams Shirt Folding Machine Operator Relationship Specialty Start Date End Date Mauro Hernandez MD [address] [place], [place] [id number] PCP - General FAMILY PRACTICE 10/22/24 documented as of this encounter
[2024-10-23 08:20] LABS: Anion Gap 10 mmol/L (4-12); Blood Urea Nitrogen 22 mg/dL (9-20); Calcium 9.2 mg/dL (8.4-10.2); Carbon Dioxide 25 mmol/L (22-30); Chloride 104 mmol/L (98-107); Estimated Glomerular Filt Rate 56; Glucose 135 mg/dL (65-110); Potassium 3.8 mmol/L (3.4-5.0); Sodium 139 mmol/L (137-145)
[2024-10-23 08:51] LABS: MALB Creatinine Ratio 42.3 mg/g (0-30)
== END 2024-10-23 07:20 | disposition home or self-care (01) ==
PROVIDERS: PCP Family Medicine; Visit Provider Student in an Organized Health Care Education/Training Program
DX: N18.31 Chronic kidney disease, stage 3a (principal)
CPT/HCPCS: 36415; 80048; 82043

== ENCOUNTER 2024-11-20 07:08 | Outpatient (CLI) | payer MEDICARE, SELFPAY ==
--- OUTSIDE RECORDS SUMMARY | 2009-07-29 03:45 | XMS_ITS | Continuity of Care Document ---
Author Organization [facility] Address [address] [place] [address] [address] [place] [address] Phone Care Team Providers Care Skinning Machine Feeder Name Role Phone Kirkland OD, Donaldo Unavailable Unavailable Procedures Procedure Date Eye Exam & Treatment Refraction Advance Directives Directive Yes / No Effective Date File Name No Information Encounters Encounter Description Practice Location Reason(s) For Visit Diagnoses Date Provider Providers Copied on Encounter [facility], [address], [place], [place], [id number], [place] tel:[phone] [facility] No Information 3-201 0 Kirkland OD Donaldo. [address] [facility] [address] , [address], [place], [address], [place]. tel:[phone] Family History Family Member Type Diagnosis Age At Onset No Information Payers Payer name Insurance type Covered alliance party ID Authoriza tion(s) No Information Social History Type Description Quantity Date Captured Comments Sex Male Smoking Status No Information Chief Complaint And Reason For Visit No Information Reason For Referral Reason For Referral No Information History Of Present Illness Encounter Date Complaint History Of Prese nt Illness No Information Functional Status Date Functional Assessmen t No Information Instructions Date Instruction Additional Infor mation No Information Assessments Type Assessment Date No Information Patient Care Teams Name Effective Dates (start - stop) Status Members No Information
[2024-11-20 09:32] LABS: Free T4 Free Thyroxine 0.83 ng/dL (0.78-2.19)
[2024-11-20 09:50] LABS: Thyroid Stimulating Hormone 9.440 uIU/mL (0.465-4.680); Total Triiodothyronine (T3) 1.18 NG/ML (0.82-1.58)
== END 2024-11-20 07:09 | disposition home or self-care (01) ==
PROVIDERS: PCP Family Medicine; Visit Provider Physician Assistant
DX: E11.22 Type 2 diabetes mellitus with diabetic chronic kidney disease (principal); I12.9 Hypertensive chronic kidney disease with stage 1 through stage 4 chronic kidney disease, or unspecified chronic kidney disease; N18.1 Chronic kidney disease, stage 1; R79.89 Other specified abnormal findings of blood chemistry; E78.2 Mixed hyperlipidemia; R53.83 Other fatigue
CPT/HCPCS: 36415; 84439; 84443; 84480